=== PATIENT | male | born 1985 | race Caucasian/White ===

== ENCOUNTER → 2021-06-10 | Outpatient (CLI) | payer OTHER | LOC: M SLEEP 20:00 | PROVIDERS: ATTEND Physician Assistant | DX: R40.0 Somnolence (principal) ==

== ENCOUNTER → 2022-06-25 | Outpatient (CLI) | payer OTHER | LOC: M PLAIMG 15:27 | PROVIDERS: ATTEND Nurse Practitioner Family | DX: R06.02 Shortness of breath (principal) ==

== ENCOUNTER 2022-07-10 11:31 | Day surgery (SDC) | payer OTHER ==
[~2022-07-10] VITALS: Ht 185.4 cm; Wt 102.0 kg
[~2022-07-10 11:31] MED LIST: ACET325C5 PO; DULO1CAP4 PO; GABA800T4 PO; MELO7.5T35 PO; OMEP40CA5 PO; TIZA10TA PO
[2022-07-10] MEDS ORDERED: propofoL 200 MG/20 ML VIAL As Ordered ONE (12:55)
[2022-07-10] MEDS ORDERED: LIDOCAINE 2% 100MG/5ML SDV (FOR ANES.) As Ordered ONE (12:55)
[2022-07-10 13:50] VITALS: BP 127/77
== END 2022-07-10 13:53 | disposition home or self-care (01) ==
LOC: M OPP 11:31
PROVIDERS: ATTEND Internal Medicine Gastroenterology
DX: K57.30 Diverticulosis of large intestine without perforation or abscess without bleeding (principal); K64.0 First degree hemorrhoids; R19.7 Diarrhea, unspecified; K31.89 Other diseases of stomach and duodenum; R10.13 Epigastric pain; K21.00 Gastro-esophageal reflux disease with esophagitis, without bleeding; R14.0 Abdominal distension (gaseous)

== ENCOUNTER → 2024-09-20 | Outpatient (CLI) | payer OTHER ==
[~2024-09-20] MED LIST changes: +GABA-1635 PO; -GABA800T4 PO
== END ==
LOC: M RAD 07:39
PROVIDERS: ATTEND Nurse Practitioner Family
DX: M54.59 Other low back pain (principal)